=== PATIENT | male | born 1965 | race Caucasian/White ===

== ENCOUNTER 2023-05-06 02:26 | Emergency (ER) | payer OTHER ==
--- OUTSIDE RECORDS SUMMARY | 2023-05-06 02:30 | XMS REPORT | Continuity of Care Document ---
:1965 Author Organization [facility] t Address [address] [place] [id number] Care Team Providers Name Role Phone Unavailable Unavailable Unavailable Problems This patient has no known problems. Allergies, Adverse Reactions, Alerts This patient has no known allergies or adverse reactions. Medications This patient has no known medications. Procedures This patient has no known procedures. Encounters Start End Encounter Admission Attending Care Care Encounter Source Date/Time Date/Time Type Type Clinicians Facility Department ID 2023-01-12 2023-01-12 Outpatient [facility] [id number] [address] 15:39:16 15:39:16 [id number] [address] [place] Results This patient has no known results.
[2023-05-06] MEDS ORDERED: KETOROLAC 30 MG/ML INJ ONE (03:25)
[2023-05-06] MEDS ORDERED: HYDROCODONE/APAP 5/325 MG TAB ONE (04:15)
--- NOTE | 2023-05-06 04:20 | ER ---
Nurse's Notes [facility] Name: Nilo Hu Age: 58 yrs Sex: Male : 1965 Arrival Date: 05/06/2023 Time: 02:26 Bed 12 Private MD: Diagnosis: Pain in right knee Presentation: 05/06 02:43 Chief complaint: Patient states: right knee pain for the past 10 days, worsening pain as6 the past several days. Coronavirus screen: At this time, the client does not indicate any symptoms associated with coronavirus-19. Ebola Screen: No symptoms or risks identified at this time. Initial Sepsis Screen: Does the patient meet any 2 criteria? No. Patient's initial sepsis screen is negative. Does the patient have a suspected source of infection? No. Patient's initial sepsis screen is negative. Risk Assessment: Do you want to hurt yourself or someone else? Patient reports no desire to harm self or others. Onset of symptoms was April 26, 2023. 02:43 Method Of Arrival: Ambulatory as6 02:43 Acuity: QUITA 4 as6 Triage Assessment: 02:46 General: Appears in no apparent distress. Behavior is calm, cooperative. Pain: as6 Complains of pain in right knee. 02:57 EENT: No deficits noted. No signs and/or symptoms were reported regarding the EENT as6 system. Neuro: Level of Consciousness is awake, alert, obeys commands, Oriented to person, place, time, situation. Cardiovascular: Capillary refill < 3 seconds Patient's skin is warm and dry. Respiratory: Respiratory effort is even, unlabored, Respiratory pattern is regular, symmetrical. GI: No deficits noted. No signs and/or symptoms were reported involving the gastrointestinal system. : No deficits noted. No signs and/or symptoms were reported regarding the genitourinary system. Derm: Skin is intact, is healthy with good turgor. Musculoskeletal: Range of motion: limited in right knee. Historical: - Allergies: 02:45 Latex, Natural Rubber; as6 - PMHx: 02:45 Bipolar disorder; as6 - PSHx: 02:45 Appendectomy; as6 - Immunization history:: Adult Immunizations not up to date. - Social history:: Smoking status: Patient reports the use of cigarette tobacco products, smokes one pack cigarettes per day. Screenin:58 [facility] ED Fall Risk Assessment (Adult) Score/Fall Risk Level 0 - 2 = Low Risk. Abuse as6 screen: Denies threats or abuse. Denies injuries from another. Nutritional screening: No deficits noted. Tuberculosis screening: No symptoms or risk factors identified. Assessment: 02:58 General: see triage assessment . as6 Vital Signs: 02:43 BP 138 / 95; Pulse 88; Resp 18 S; Temp 97.2(TE); Pulse Ox 95% on R/A; Weight 113.4 kg as6 (R); Height 5 ft. 11 in. (R); Pain 8/10; 04:26 BP 124 / 81; Pulse 64; Resp 18 S; Pulse Ox 97% on R/A; as6 02:43 Body Mass Index 34.87 (113.40 kg, 180.34 cm) as6 02:43 Pain Scale: Adult as6 ED Course: 02:29 Patient arrived in ED. jj6 02:39 Vicente Salamanca DO is Attending Physician. ms3 02:44 Triage completed. as6 02:45 Clif Culp, PARVEEN is Primary Nurse. as6 02:45 Arm band placed on. as6 02:58 Bed in low position. Call light in reach. as6 03:29 Knee Right 3 View XRAY In Process Unspecified. EDMS 04:19 Marvin Mitchell MD is Referral Physician. ms3 04:24 No provider procedures requiring assistance completed. Patient did not have IV access as6 during this emergency room visit. Crutch training done. Knee immobilizer applied on right knee. 04:25 Provided Education on: follow up, rx teaching . as6 Administered Medications: 03:14 Drug: Ketorolac IM 15 mg IM once Route: IM; Site: right deltoid; as6 04:24 Follow up: Response: No adverse reaction as6 04:02 Drug: HYDROcodone-acetaminophen PO 5 mg-325 mg 1 tabs PO once Route: PO; as6 04:24 Follow up: Response: No adverse reaction as6 Medication: 02:58 VIS not applicable for this client. as6 Outcome: 04:19 Discharge ordered by . ms3 04:24 Discharged to home ambulatory, with crutches, as6 04:24 Condition: stable 04:24 Discharge instructions given to patient, Instructed on discharge instructions, follow up and referral plans. medication usage, Demonstrated understanding of instructions, follow-up care, medications, Prescriptions given X 2, 04:26 Patient left the ED. as6 Signatures: Dispatcher [employer] EDMS Vicente Salamanca DO DO ms3 Lesa Galan jj6 Clif Culp, RN RN as6 Corrections: (The following items were deleted from the chart) 02:58 02:46 General: Appears in no apparent distress. Behavior is calm, cooperative, as6 as6
--- NOTE | 2023-05-06 04:20 | EDPHYS ---
Physician Documentation [facility] Name: Nilo Hu Age: 58 yrs Sex: Male : 1965 Arrival Date: 05/06/2023 Time: 02:26 Bed 12 Private MD: ED Physician Vicente Salamanca HPI: 05/06 02:57 This 58 yrs old Male presents to ER via Ambulatory with complaints of Knee Pain. ms3 02:57 . ms3 02:57 58-year-old male with past medical history of bipolar disorder presents to the [facility] emergency department for right knee pain that is been ongoing for 10 days. Patient describes his pain as throbbing and rates it an 8/10. Patient denies fevers, chills, nausea, vomiting. Patient denies any alleviating or inciting factors.. Historical: - Allergies: 02:45 Latex, Natural Rubber; as6 - PMHx: 02:45 Bipolar disorder; as6 - PSHx: 02:45 Appendectomy; as6 - Immunization history:: Adult Immunizations not up to date. - Social history:: Smoking status: Patient reports the use of cigarette tobacco products, smokes one pack cigarettes per day. ROS: 02:57 Constitutional: Negative for fever, and chills. Cardiovascular: Negative for chest ms3 pain, and palpitations. Respiratory: Negative for shortness of breath, cough, wheezing, and pleuritic chest pain, 02:57 Abdomen/GI: Negative for abdominal pain, nausea, vomiting, diarrhea, and constipation, 02:57 MS/extremity: Positive for pain, of the right knee, Negative for swelling, warmth, 02:57 All other systems are negative, Exam: 04:30 Constitutional: This is a well developed, well nourished patient who is awake, alert, ms3 and in no acute distress. Cardiovascular: Regular rate and rhythm with a normal S1 and S2. No gallops, murmurs, or rubs. Normal PMI, no JVD. No pulse deficits. Respiratory: Lungs have equal breath sounds bilaterally, clear to auscultation and percussion. No rales, rhonchi or wheezes noted. No increased work of breathing, no retractions or nasal flaring. Abdomen/GI: Soft, non-tender, with normal bowel sounds. No distension or tympany. No guarding or rebound. No evidence of tenderness throughout. 04:30 Musculoskeletal/extremity: Extremities: noted in the right knee: pain, There is no evidence of ecchymosis, erythema, swelling, Vital Signs: 02:43 BP 138 / 95; Pulse 88; Resp 18 S; Temp 97.2(TE); Pulse Ox 95% on R/A; Weight 113.4 kg as6 (R); Height 5 ft. 11 in. (R); Pain 8/10; 04:26 BP 124 / 81; Pulse 64; Resp 18 S; Pulse Ox 97% on R/A; as6 02:43 Body Mass Index 34.87 (113.40 kg, 180.34 cm) as6 02:43 Pain Scale: Adult as6 MDM: 02:46 Patient medically screened. ms3 04:29 ED course: [employer] reviewed. ms3 04:30 Differential diagnosis: tendonitis, Arthritis. Data reviewed: vital signs, nurses ms3 notes, and as a result, I will discharge patient. Independent interpretation of the following test(s) in the Emergency Department X-Ray: My interpretation is Right knee x-ray images reviewed by me do not reveal arthritis. Care significantly affected by the following chronic conditions: Bipolar disorder. Counseling: I had a detailed discussion with the patient and/or guardian regarding the historical points, exam findings, and any diagnostic results supporting the discharge/admit diagnosis, radiology results, the need for outpatient follow up, to return to the emergency department if symptoms worsen or persist or if there are any questions or concerns that arise at home. ED course: Discussed x-ray findings with patient. Discussed treatment plan. Patient instructed not to take lorazepam when taking Tylenol with codeine. Patient understands and agrees with plan. All questions were answered. Return precautions discussed include worsening symptoms, fevers, chills, or any other concerns.. 12 02:46 Order name: Knee Right 3 View XRAY ms3 05/06 02:46 Order name: Knee Immobilizer; Complete Time: 04:24 ms3 05/06 02:46 Order name: Crutches; Complete Time: 04:24 ms3 Administered Medications: 03:14 Drug: Ketorolac IM 15 mg IM once Route: IM; Site: right deltoid; as6 04:24 Follow up: Response: No adverse reaction as6 04:02 Drug: HYDROcodone-acetaminophen PO 5 mg-325 mg 1 tabs PO once Route: PO; as6 04:24 Follow up: Response: No adverse reaction as6 Disposition Summary: 05/06/23 04:19 Discharge Ordered Notes: Location: Home ms3 Condition: Stable ms3 Diagnosis - Pain in right knee ms3 Followup: ms3 - With: Marvin Mitchell MD - When: 2 - 3 days - Reason: Recheck today's complaints Discharge Instructions: - Discharge Summary Sheet ms3 - Acute Knee Pain, Adult ms3 Forms: - Medication Reconciliation Form ms3 - Thank You Letter ms3 - Antibiotic Education ms3 - Prescription Opioid Use ms3 - Patient Portal Instructions ms3 - Leadership Thank You Letter ms3 Prescriptions: - acetaminophen-codeine 300-30 mg Oral tablet - take 1 tablet ORAL route every 8 hours as needed for pain; 9 tablet; Refills: ms3 0, Product Selection Permitted - Ibuprofen 600 mg Oral Tablet - take 1 tablet ORAL route every 6 hours As needed take with food; 30 tablet; ms3 Refills: 0, Product Selection Permitted Signatures: Dispatcher [employer] EDVicente Cox, DO ms3 Clif Culp RN RN as6 Corrections: (The following items were deleted from the chart) 04:21 02:57 This 58 yrs old Male presents to ER via Ambulatory with complaints of Knee Pain. ms3 ms3
[2023-05-06 04:37] VITALS: TEMP 97.2
[2023-05-06 04:38] VITALS: BP 124/81; O2SAT 97
--- NOTE | 2023-05-07 12:04 | RAD REPORT ---
EXAM DESCRIPTION: RAD - Knee Right 3 View - 05/06/2023 3:27 am CLINICAL HISTORY: The patient is 58 years old and is Male; PAIN TECHNIQUE: Three views of the right knee. COMPARISON: No relevant prior studies available. FINDINGS: Bones/joints: Well-corticated osseous density along the expected course of the patellar tendon which may relate to prior trauma. No acute fracture. No dislocation. Soft tissues: Unremarkable. IMPRESSION: No acute fracture or dislocation. Electronically signed by: Sanya Gonzalez MD 05/06/2023 04:02 AM TRAFFIC MAINTENANCE SUPERVISOR Due to temporary technical issues with the PACS/Fluency reporting system, reports are being signed by the in house radiologist without review as a courtesy to ensure prompt reporting. The interpreting r adiologist is fully responsible for the content of the report.
== END 2023-05-06 04:26 | disposition home or self-care (01) ==
LOC: ER 02:26
DX: M25.561 Pain in right knee (principal); F31.9 Bipolar disorder, unspecified; F17.210 Nicotine dependence, cigarettes, uncomplicated
CPT/HCPCS: 96372; 99284

== ENCOUNTER 2023-10-04 11:58 | Emergency (ER) | payer OTHER ==
--- OUTSIDE RECORDS SUMMARY | 2023-10-04 12:00 | XMS REPORT | Continuity of Care Document ---
Author Name Unknown Address [address] [place] [address] [place] [address] [employer] Address [address] [place] [address] [address] [place] [address] Care Team Providers Care Veterinary Receptionist Name Role Phone Unavailable Unavailable Unavailable Encounters Start Date/Time End Date/Time Encounter Type Admission Type Attending Clinicians Care Facility Care Department Encounter ID Source 2023-06-13 13:19:02 Outpatient [facility] [id number] [facility] 2023-01-12 15:39:16 2023-01-12 15:39:16 Outpatient [facility] [id number] Mirza Tena
[2023-10-04 12:45] LABS: Absolute Basophils 0.1 K/uL (0-0.5); Absolute Eosinophils 0.1 K/uL (0-0.5); Absolute Lymphocytes (CBC) 1.1 K/uL (0.7-4.9); Absolute Monocytes 0.3 K/uL (0.1-1.3); Absolute Neutrophil 4.4 K/uL (1.8-8.0); Basophils % 1.4 % (0-1.3); Eosinophils % 1.3 % (0-4.4); Hematocrit 40.8 % (39.6-49.0); Lymphocytes % 18.8 % (15.3-44.8); MCH 32.9 pg (27.0-35.0); MCHC 34.3 g/dL (32.0-36.0); MCV 95.8 fL (80-100); MPV 9.4 fL (7.6-11.3); Monocytes % 5.6 % (3.3-12.3); Neutrophils % 72.9 % (41.7-73.7); Nucleated Red Blood Cells % 0.1 % (0-0); Platelets 173 thou/uL (152-406); RBC Red Blood Cell Count 4.26 M/uL (4.33-5.43); Red Cell Distribution Width 13.9 % (12.1-15.2)
[2023-10-04 12:58] LABS: Sqamous Epithelial None Seen /HPF (None Seen); Urine Bacteria None Seen /HPF (<20); Urine Bilirubin NEGATIVE (Negative); Urine Blood Negative (Negative); Urine Clarity Clear (Clear); Urine Color Yellow (Yellow); Urine Culture Reflex Order NOT NEEDED; Urine Glucose NEGATIVE (Negative); Urine Ketones NEGATIVE (Negative); Urine Microscopic Reflex YN ORDER UMIC; Urine Mucus Slight /HPF (None Seen); Urine Nitrite NEGATIVE (Negative); Urine Protein TRACE (Negative); Urine RBC <5 /HPF (None Seen); Urine Urobilinogen 1+ (Normal); Urine WBC <5 /HPF (<5)
[2023-10-04 13:06] LABS: ALT/SGPT 56 U/L (16-61); AST/SGOT 29 U/L (15-37); Albumin 3.6 g/dL (3.4-5.0); Albumin/Globulin Ratio 1.2 (1.1-1.8); Alkaline Phosphatase 96 U/L (45-117); Anion Gap 4.7 mEq/L (5.0-15.0); BUN Blood Urea Nitrogen 18 mg/dL (7-18); Bicarbonate 31 mEq/L (21-32); Bilirubin Total 0.6 mg/dL (0.2-1.0); Globulin 2.9 g/dL (2.3-3.5); Glomerular Filtration Rate 100 ml/min (=/>90); Glucose Level 98 mg/dL (74-106); Lipase 23 U/L (13-75); Magnesium 2.1 mg/dL (1.6-2.4); Potassium 3.7 mEq/L (3.5-5.1); Protein, Total 6.5 g/dL (6.4-8.2); Sodium Level 141 mEq/L (136-145); Troponin High Sensitivity 9.6 pg/mL (<58.9)
[2023-10-04 13:06] LABS: Barbiturates NEGATIVE (NEGATIVE); Benzodiazepines POSITIVE (NEGATIVE); Cocaine NEGATIVE (NEGATIVE); METHAMPHETAM NEGATIVE (NEGATIVE); Methadone NEGATIVE (NEGATIVE); Opiates NEGATIVE (NEGATIVE); Phencyclidine NEGATIVE (NEGATIVE); THC Cannibis NEGATIVE (NEGATIVE)
--- NOTE | 2023-10-04 13:10 | RAD REPORT ---
EXAM DESCRIPTION: RAD - Chest Single View - 10/04/2023 12:56 pm CLINICAL HISTORY: CHEST PAIN Chest pain. COMPARISON: No comparisons FINDINGS: Portable technique limits examination quality. The lungs are grossly clear. The heart is mildly enlarged in size. No displaced fractures. IMPRESSION: No acute intrathoracic process suspected.
--- NOTE | 2023-10-04 17:59 | EDPHYS ---
Physician Documentation [facility] Name: Nilo Hu Age: 58 yrs Sex: Male : 1965 Arrival Date: 10/04/2023 Time: 11:58 Bed 16 Private MD: ED Physician Maritza King HPI: 10/03 13:44 This 58 yrs old Male presents to ER via EMS with complaints of Abdominal Pain. sd2 13:44 58 yo M presents with CC of chest pain, abdominal pain and overdose. Reports taking sd2 50-60 1 mg Ativan pills yesterday and then threw them up. Reports he did not want to live but was not trying to kill himself and wanted to "get higher." He reports abdominal pain has improved but now has some left upper chest pain. Denies fevers, SOB, diarrhea or other symptoms. Denies other substance abuse or active SI.. Historical: - Allergies: 12:11 Latex; ko1 - PMHx: 12:11 Bipolar disorder; Borderline Diabetees; Hypercholesterolemia; Hypertensive disorder; ko1 Kidney stone; sciatica; - PSHx: 12:11 Appendectomy; Cholecystectomy; ko1 - Immunization history:: Adult Immunizations unknown. - Infectious Disease History:: Denies. - Social history:: Smoking status: Patient denies any tobacco usage or history of. ROS: 13:44 Constitutional: Negative for fever, chills, and weight loss, Eyes: Negative for injury, sd2 pain, redness, and discharge, 13:44 Respiratory: Negative for shortness of breath, cough, wheezing. 13:44 MS/Extremity: Negative for injury and deformity, Skin: Negative for injury, rash, and discoloration, Neuro: Negative for headache, numbness and tingling. 13:44 Cardiovascular: Positive for chest pain, Negative for orthopnea, palpitations, 13:44 Abdomen/GI: Positive for abdominal pain, nausea and vomiting, Negative for diarrhea, Exam: 13:44 Constitutional: This is a well developed, well nourished patient who is awake, alert, sd2 and in no acute distress. Head/Face: Normocephalic, atraumatic. Eyes: EOMI, normal conjunctiva bilaterally Chest/axilla: Normal chest wall appearance and motion. Nontender with no deformity. Cardiovascular: Regular rate and rhythm with a normal S1 and S2. No gallops, murmurs, or rubs. 2+ distal pulses. Chest wall pain reproducible with palpation to left upper chest. Respiratory: Lungs have equal breath sounds bilaterally, clear to auscultation and percussion. No rales, rhonchi or wheezes noted. No increased work of breathing, no retractions or nasal flaring. Abdomen/GI: Soft, non-tender, with normal bowel sounds. No guarding or rebound. No evidence of tenderness throughout. Skin: Warm, dry with normal turgor. Normal color with no rashes, no lesions, and no evidence of cellulitis. MS/ Extremity: Pulses equal, no cyanosis. Neurovascular intact. Full, normal range of motion. Psych: Awake, alert, with orientation to person, place and time. Behavior, mood, and affect are within normal limits. 14:26 ECG was reviewed by the Attending Physician. NSR, rate 75, no STEMI criteria or sd2 significant ST-T wave changes Vital Signs: 12:07 BP 155 / 85; Pulse 73; Resp 16; Temp 97; Pulse Ox 96% on R/A; ko1 12:42 BP 169 / 78; Pulse 84; Resp 15; Pulse Ox 96% ; ko1 15:03 BP 171 / 86; Pulse 70; Resp 15; Pulse Ox 95% ; ko1 16:14 BP 141 / 78; Pulse 65; Resp 16; Pulse Ox 98% ; ko1 18:30 BP 155 / 84; Pulse 68; Resp 16; Pulse Ox 98% ; ko1 MDM: 12:07 Patient medically screened. rn 13:44 Differential Diagnosis overdose, substance abuse, ACS, anemia, dehydration, electrolyte sd2 abnormality, drug use among others. Data reviewed: vital signs, nurses notes, lab test result(s), EKG, radiologic studies. Management of patient was discussed with the following: Poison Control who recommends 3 hours observation and tox screens on labs. . Counseling: I had a detailed discussion with the patient and/or guardian regarding the historical points, exam findings, and any diagnostic results supporting the discharge/admit diagnosis, lab results, radiology results. ED course: labs and imaging reviewed with no significant findings. Pt resting comfortably. Pending completion of observation period for medical clearance.. 17:56 ED course: Pt has been medically cleared and evaluated by [facility] for mental health. sd2 Pt is not currently having any SI, HI or hallucinations. He does have a substance abuse problem and continually takes benzos due to this. [facility] recommends outpatient treatment. He is open to receiving help and will be assigned to receive resources with [facility] including a lockbox and his brother will help him with managing his medications to take them appropriately. No signs of benzo withdrawal at this time. Pt has a safety plan in place. He is comfortable with plan for discharge and outpatient follow up and verbalizes understanding of strict return precautions. . 10/03 12:27 Order name: CBC with Diff; Complete Time: 13:19 sd10/03 12:27 Order name: CMP; Complete Time: 13:19 10/03 12:27 Order name: Magnesium; Complete Time: 13:19 10/03 12:27 Order name: Troponin High Sensitivity; Complete Time: 13:19 sd10/03 12:27 Order name: Urine Drug Screen; Complete Time: 13:19 10/03 12:27 Order name: Acetaminophen; Complete Time: 13:19 10/03 12:27 Order name: Salicylate; Complete Time: 13:19 sd10/03 12:27 Order name: Ethanol; Complete Time: 13:19 sd10/03 12:27 Order name: Lipase; Complete Time: 13:19 10/03 12:27 Order name: Urinalysis w/ reflexes; Complete Time: 13:19 sd10/03 12:27 Order name: XRAY Chest (1 view); Complete Time: 13:19 10/03 12:27 Order name: EKG - Nurse/Tech; Complete Time: 12:49 sd2 Administered Medications: 12:30 Drug: NS 0.9% IV 1000 ml IV at 1 bolus Per protocol; 1000 mL bolus Route: IV; Rate: 1 ko1 bolus; Site: right antecubital; 14:00 Follow up: Response: No adverse reaction; IV Status: Completed infusion; IV Intake: ko1 1000ml Disposition Summary: 10/04/23 17:58 Discharge Ordered Problem: new sd2 Symptoms: have improved sd2 Condition: Stable sd2 Diagnosis - Poisoning by benzodiazepines, accidental (unintentional) sd2 - Abdominal pain, Generalized sd2 - Chest pain, unspecified sd2 Followup: sd2 - With: Private Physician - When: 2 - 3 days - Reason: Recheck today's complaints, Continuance of care, Re-evaluation by your physician Discharge Instructions: - Discharge Summary Sheet sd2 - Abdominal Pain, Adult sd2 - Chest Wall Pain sd2 - Substance Use Disorder sd2 - Benzodiazepine Overdose sd2 - Substance Use Disorder and Mental Illness sd2 Forms: - Medication Reconciliation Form sd2 - Antibiotic Education sd2 - Prescription Opioid Use sd2 - Patient Portal Instructions sd2 - Leadership Thank You Letter sd2 Signatures: Dispatcher [employer] EDMS Bhavesh Feldman MD MD rn Dunlop, Stephanie, MD MD sd2 Karen Newby RN RN ko1 Corrections: (The following items were deleted from the chart) 12:28 12:28 CBC+H.LAB.BRZ ordered. EDMS EDMS 12:28 12:28 COMPREHENSIVE METABOLIC PANEL+C.LAB.BRZ ordered. EDMS EDMS 12:28 12:28 MAGNESIUM+C.LAB.BRZ ordered. EDMS EDMS 12:28 12:28 Troponin High Sensitivity+C.LAB.BRZ ordered. EDMS EDMS 12:28 12:28 URINE DRUG SCREEN+UC.LAB.BRZ ordered. EDMS EDMS 12:28 12:28 ACETAMINOPHEN+C.LAB.BRZ ordered. EDMS EDMS 12:28 12:28 SALICYLATE+C.LAB.BRZ ordered. EDMS EDMS 12:28 12:28 ETHANOL+C.LAB.BRZ ordered. EDMS EDMS 12:28 12:28 LIPASE+C.LAB.BRZ ordered. EDMS EDMS 12:28 12:28 Urinalysis+U.LAB.BRZ ordered. EDMS EDMS 12:28 12:28 Chest Single View+RAD.RAD.BRZ ordered. EDMS EDMS
--- NOTE | 2023-10-04 17:59 | ER ---
Nurse's Notes [facility] Name: Nilo Hu Age: 58 yrs Sex: Male : 1965 Arrival Date: 10/04/2023 Time: 11:58 Bed 16 Private MD: Diagnosis: Poisoning by benzodiazepines, accidental (unintentional);Abdominal pain, Generalized;Chest pain, unspecified Presentation: 10/03 12:07 Chief complaint: EMS states: patient took approximately 50 Ativan (1mg) tabs yesterday, ko1 woke up today with nausea, vomiting and abdominal pain. Stated "I didn't want to kill myself but I didn't want to be alive". No SI today. Coronavirus screen: At this time, the client does not indicate any symptoms associated with coronavirus-19. Ebola Screen: No symptoms or risks identified at this time. Initial Sepsis Screen: Does the patient meet any 2 criteria? No. Patient's initial sepsis screen is negative. Does the patient have a suspected source of infection? No. Patient's initial sepsis screen is negative. Risk Assessment: Do you want to hurt yourself or someone else? Patient reports no desire to harm self or others. Onset of symptoms was October 04, 2023. Care prior to arrival: IV initiated. 20 GA, in the right antecubital area, Glucose check: 107 Oxygen administered. via nasal cannula. 12:07 Method Of Arrival: EMS: [facility] ko1 12:07 Acuity: QUITA 3 ko1 Triage Assessment: 12:11 General: Appears in no apparent distress. obese, unkempt, Behavior is calm, ko1 cooperative, appropriate for age. Pain: Complains of pain in abdomen. EENT: No deficits noted. Neuro: No deficits noted. Cardiovascular: No deficits noted. Respiratory: Reports shortness of breath on exertion. GI: Reports lower abdominal pain, nausea, vomiting. : No deficits noted. Derm: No deficits noted. Musculoskeletal: No deficits noted. Historical: - Allergies: 12:11 Latex; ko1 - PMHx: 12:11 Bipolar disorder; Borderline Diabetees; Hypercholesterolemia; Hypertensive disorder; ko1 Kidney stone; sciatica; - PSHx: 12:11 Appendectomy; Cholecystectomy; ko1 - Immunization history:: Adult Immunizations unknown. - Infectious Disease History:: Denies. - Social history:: Smoking status: Patient denies any tobacco usage or history of. Screenin:42 [facility] ED Fall Risk Assessment (Adult) History of falling in the last 3 months, ko1 including since admission No falls in past 3 months (0 pts) Confusion or Disorientation No (0 pts) Intoxicated or Sedated No (0 pts) Impaired Gait No (0 pts) Mobility Assist Device Used No (0 pt) Altered Elimination No (0 pt) Score/Fall Risk Level 0 - 2 = Low Risk Oriented to surroundings, Maintained a safe environment, Educated pt \\T\\ family on fall prevention, incl call for assistance when getting out of bed, Assessed \\T\\ reinforced patient's understanding of fall precautions, Provided non-skid footwear, Hourly rounding (assess needs \\T\\ fall precautionary measures) done, Used ambulatory aids as needed (educated on \\T\\ assisted with), Used gait belt as appropriate. Abuse screen: Denies threats or abuse. Denies injuries from another. Nutritional screening: No deficits noted. Tuberculosis screening: No symptoms or risk factors identified. Assessment: 12:13 Reassessment: see triage note. ko1 13:00 Reassessment: Patient appears in no apparent distress at this time. No changes from ko1 previously documented assessment. Patient and/or family updated on plan of care and expected duration. Pain level reassessed. Patient is alert, oriented x 3, equal unlabored respirations, skin warm/dry/pink. Patient states feeling better. 13:00 GI: Bowel sounds present X 4 quads. Abd is soft and non tender X 4 quads. ko1 14:00 Reassessment: Patient appears in no apparent distress at this time. No changes from ko1 previously documented assessment. Patient and/or family updated on plan of care and expected duration. Pain level reassessed. Patient is alert, oriented x 3, equal unlabored respirations, skin warm/dry/pink. 15:00 Reassessment: Patient appears in no apparent distress at this time. No changes from ko1 previously documented assessment. Patient and/or family updated on plan of care and expected duration. Pain level reassessed. Patient is alert, oriented x 3, equal unlabored respirations, skin warm/dry/pink. 15:30 Reassessment: Patient appears in no apparent distress at this time. No changes from ko1 previously documented assessment. Patient and/or family updated on plan of care and expected duration. Pain level reassessed. Patient is alert, oriented x 3, equal unlabored respirations, skin warm/dry/pink. 16:30 Reassessment: Patient appears in no apparent distress at this time. No changes from ko1 previously documented assessment. Patient and/or family updated on plan of care and expected duration. Pain level reassessed. Patient is alert, oriented x 3, equal unlabored respirations, skin warm/dry/pink. 17:30 Reassessment: Patient appears in no apparent distress at this time. No changes from ko1 previously documented assessment. Patient and/or family updated on plan of care and expected duration. Pain level reassessed. Patient is alert, oriented x 3, equal unlabored respirations, skin warm/dry/pink. 18:00 Reassessment: [facility] evaluation completed, recommendation is for outpatient aa5 treatment (see paper chart). . 18:30 Reassessment: Pt completed discharge safety plan (see paper chart for copy), pt's aa5 brother at bedside. Pt denies suicidal thoughts or intentions.. Vital Signs: 12:07 BP 155 / 85; Pulse 73; Resp 16; Temp 97; Pulse Ox 96% on R/A; ko1 12:42 BP 169 / 78; Pulse 84; Resp 15; Pulse Ox 96% ; ko1 15:03 BP 171 / 86; Pulse 70; Resp 15; Pulse Ox 95% ; ko1 16:14 BP 141 / 78; Pulse 65; Resp 16; Pulse Ox 98% ; ko1 18:30 BP 155 / 84; Pulse 68; Resp 16; Pulse Ox 98% ; ko1 ED Course: 12:06 Patient arrived in ED. ko1 12:07 Karen Newby, RN is Primary Nurse. ko1 12:07 Bhavesh Feldman MD is Attending Physician. rn 12:09 Attending Physician role handed off by Bhavesh Feldman MD rn 12:09 Maritza King MD is Attending Physician. rn 12:10 Triage completed. ko1 12:11 Arm band placed on right wrist. Patient placed in an exam room, on a stretcher, on ko1 quality assurance monitor final, on pulse oximetry, Patient notified of wait time. 12:30 Initial lab(s) drawn, by me, sent to lab. Urine collected: clean catch specimen, EKG ko1 done, by ED staff, reviewed by Maritza King MD. Maintain EMS IV. Dressing intact. Good blood return noted. Site clean \\T\\ dry. Gauge \\T\\ site: 20 R AC. 12:40 Lipase Sent. ko1 12:40 Ethanol Sent. ko1 12:40 Salicylate Sent. ko1 12:40 Acetaminophen Sent. ko1 12:40 Magnesium Sent. ko1 12:40 Troponin High Sensitivity Sent. ko1 12:40 CMP Sent. ko1 12:40 CBC with Diff Sent. ko1 12:42 Patient has correct armband on for positive identification. Allergy band placed. Bed in ko1 low position. Call light in reach. Side rails up X2. Client placed on continuous cardiac and pulse oximetry monitoring. NIBP monitoring applied. school bus monitor on. Door closed. Noise minimized. Lights dimmed. Warm blanket given. Pillow given. Assisted to bathroom. Assisted with urinal. 12:49 EKG done, by ED staff, reviewed by Maritza King MD. em1 12:50 Urinalysis w/ reflexes Sent. ko1 12:50 Urine Drug Screen Sent. ko1 12:58 XRAY Chest (1 view) In Process Unspecified. EDMS 15:51 spoke with Iva at [facility] she informed me she would have someone contact back. bc6 16:14 spoke with Carlos A at [facility] given an ETA of an hr. bc6 16:14 No provider procedures requiring assistance completed. ko1 17:30 Carlos A here with [facility]. bc6 18:22 IV discontinued, intact, bleeding controlled, No redness/swelling at site. Pressure jg11 dressing applied. 18:30 Provided Education on: na. ko1 18:32 IV discontinued, intact, bleeding controlled, No redness/swelling at site. Pressure ko1 dressing applied. Administered Medications: 12:30 Drug: NS 0.9% IV 1000 ml IV at 1 bolus Per protocol; 1000 mL bolus Route: IV; Rate: 1 ko1 bolus; Site: right antecubital; 14:00 Follow up: Response: No adverse reaction; IV Status: Completed infusion; IV Intake: ko1 1000ml Medication: 16:14 VIS not applicable for this client. ko1 Intake: 14:00 IV: 1000ml; Total: 1000ml. ko1 Outcome: 17:58 Discharge ordered by nena 18:30 Discharged to home ambulatory, with family, ko1 18:30 Condition: stable 18:30 Discharge instructions given to patient, family, Instructed on discharge instructions, follow up and referral plans. Demonstrated understanding of instructions, follow-up care, 18:33 Patient left the ED. ko1 Signatures: Dispatcher [employer] EDMS Bhavesh Feldman MD MD rn Martinez, Eric em1 Tata Ledesma RN RN [email or web address] Maritza King MD MD sd2 Karen Newby RN RN ko1 Bessy Nava6 Fred Silveira [id number] Corrections: (The following items were deleted from the chart) 18:34 18:30 Reassessment: Pt completed discharge safety plan (see paper chart for copy), pt's aa5 brother at bedside. . aa5
[2023-10-04 19:05] VITALS: BP 155/84; TEMP 97; O2SAT 98
--- NOTE | 2023-10-05 14:39 | EKG ---
Test Date: 2023-10-04 Test Time: 12:47:06 Manager [employer]: ALVAREZ MEASUREMENT RESULTS: Intervals: Rate: 75 MA: 176 QRSD: 72 QT: 404 QTc: 451 [place]: P: 48 MA: 176 QRS: 13 T: 55 INTERPRETIVE STATEMENTS: Normal sinus rhythm Nonspecific T wave abnormality Abnormal ECG No previous ECG available for comparison Electronically Signed On 10-05-23 14:37:01 CDT by Jovanni Barraza
== END 2023-10-04 18:33 | disposition home or self-care (01) ==
LOC: ER 11:58
DX: T42.4X1A Poisoning by benzodiazepines, accidental (unintentional), initial encounter (principal); R10.84 Generalized abdominal pain; R07.9 Chest pain, unspecified; F31.9 Bipolar disorder, unspecified; Z91.040 Latex allergy status
CPT/HCPCS: 36415; 71045; 80053; 80143; 80179; 80307; 81001; 82077; 83690; 83735; 84484; 85025; 93005; 96360; 99285